=== PATIENT | female | born 1955 | race Caucasian/White ===

== ENCOUNTER 2024-11-11 15:24 | Emergency (ER) | payer MEDICARE ==
[~2024-11-11] VITALS: Ht 172.7 cm; Wt 86.4 kg
--- NOTE | 2024-11-11 15:37 | ELECTROCARDIOGRAPH REPORT ---
[facility] Test Date: 2024-11-11 Test Time: 15:30:18 Pat Name: STEVE JONES Department: EMERGENCY ROOM Room: Gender: F Van Loader: JOSE MARIA : 1955 Requested By: RASHIDA CHOWDARY Order Number: [id number] Reading MD: Dr. Melvin Mercado Measurements Intervals [place] Rate: 183 P: 0 NM: 0 QRS: 72 QRSD: 112 T: 68 QT: 281 QTc: 491 Interpretive Statements Supraventricular tachycardia Incomplete right bundle branch block ST depression, probably rate related Baseline wander in lead(s) V1 Electronically Signed On 11-20-2024 21:52:[address] Melvin Mercado Please click the below link to view image of tracing.
[2024-11-11 15:47] LABS: MEAN PLATELET VOLUME 7.6 FL (7.4-10.4); RED CELL DISTRIBUTION WIDTH 13.6 % (11.5-14.5)
[2024-11-11 15:55] LABS: APTT 27 SECONDS (22-32); INR 1.0 INR
--- NOTE | 2024-11-11 15:55 | Physician Documentation ---
History of Present Illness ~ Chief Complaint: Rapid Heartbeat Stated Complaint: HIGH HEART RATE Time Seen by MD: 15:53 HPI 69-year-old female presenting with a rapid heartbeat that started a couple hours ago. Patient states that she was helping some friend move furniture when she started feeling this rapid heartbeat in her chest. She felt slightly dizzy and tried to sit down and take some deep breaths but it did not go away. Patient denies any chest pain, shortness of breath or any other associated symptoms. She reports that she has had episodes of SVT in the past that usually goes away on its own with some maneuvers would such as holding her breath and deep breathing. This time however it did not work. Medication Reconciliation Allergies: Uncoded Allergies: STIMULANT (Allergy, Unknown, HIGH HR, 11/11/24) Review of Systems All Other Systems at this time: Reviewed and Negative Physical Exam Vital Signs: Temperature: 98.9, Source: Temporal, Heart Rate: 175, Respiratory Rate: 20, BP: 116/80, Pulse Oximetry: 100, Weight: 86.360 Oxygen Flow Rate: 0 Physical Exam I have reviewed the triage vitals. CONST: Well developed and well nourished. In no acute distress HENT: Head Atraumatic EYES: Pupils are equal, round and reactive to light. Normal conjunctiva NECK: Normal range of motion. Supple. CARDIO: Tachycardic No murmurs, rubs, or gallops. S1, S2. PULM/CHEST: No respiratory distress. Lungs clear to auscultation. No wheeze ABD: Soft and nontender. Nondistended. Bowel sounds normal. No guarding. : Exam deferred MSK: No edema. No deformity. NEURO: Alert and oriented to person, place and time. Moving all extremities SKIN: Warm and dry. PSYCH: Normal mood and affect. Good eye contact. Progress Results/Orders Results/Orders Orders - SIMBA CHOWDARY MD Chest,Single View (11/11/24 16:09) Monitor (11/11/24 15:36) Saline Lock (11/11/24 15:36) Oxygen (11/11/24 15:36) Completed Orders - SIMBA CHOWDARY MD Chest,Single View (11/11/24 16:09) Cbc/Diff (11/11/24 15:36) PBNP (11/11/24 15:36) Electrocardiogram (11/11/24 15:36) Hs Troponin I W Calculations (11/11/24 15:36) CMP (11/11/24 15:36) PTT (11/11/24 15:39) Pt Inr (11/11/24 15:39) Normal Saline 1000ml (0.9% Sodium Chlori (11/11/24 15:55) MG (11/11/24 15:30) Electrocardiogram (11/11/24 16:00) Vital Signs 11/11/24 11/11/24 11/11/24 11/11/24 15:37 16:05 16:14 16:28 Temp 98.9 98.9 98.9 Pulse 175 85 82 Resp 20 13 13 B/P (MAP) 116/80 116/59 (78) 112/65 (81) Pulse Ox 100 97 97 O2 Flow Rate 0 0 0 11/11/24 18:15 Pulse 70 Resp 12 B/P (MAP) 125/63 Pulse Ox 98 Laboratory Tests Test 11/11/24 15:30 White Blood Count 6.2 Red Blood Count 4.76 Hemoglobin 14.2 Hematocrit 42.6 Mean Corpuscular Volume 89.5 Mean Corpuscular Hemoglobin 29.8 Mean Corpuscular Hemoglobin Concent 33.3 Red Cell Distribution Width 13.6 Platelet Count 227 Mean Platelet Volume 7.6 Neutrophils (%) (Auto) 62.5 Lymphocytes (%) (Auto) 27.9 Monocytes (%) (Auto) 7.7 Eosinophils (%) (Auto) 1.3 Basophils (%) (Auto) 0.6 Neutrophils # (Auto) 3.9 Lymphocytes # (Auto) 1.7 Monocytes # (Auto) 0.5 Eosinophils # (Auto) 0.1 Basophils # (Auto) 0.0 CBC Comment Prothrombin Time 10.6 INR International Normalized Ratio 1.0 Activated Partial Thromboplast Time 27 Coagulation Comments Sodium Level 141 Potassium Level 3.8 Chloride Level 105 Carbon Dioxide Level 26.4 Anion Gap 10 Blood Urea Nitrogen 17 Creatinine 0.88 Estimated GFR/1.73 m2 63 BUN/Creatinine Ratio 19.3 Glucose Level 110 H Calcium Level 9.0 Magnesium Level 2.0 Total Bilirubin 0.7 Aspartate Amino Transf (AST/SGOT) 22 Alanine Aminotransferase (ALT/SGPT) 15 Alkaline Phosphatase 48 Troponin I High Sensitivity 9 Pro-B-Type Natriuretic Peptide 263 H Total Protein 7.6 Albumin 4.0 Globulin 3.6 Albumin/Globulin Ratio 1.1 Chemistry Comments EKG/XRAY/CT/US/VASC/MRI EKG : Additional Comment Initial EKG at 3:30 p.m. interpreted by ED MD indicating supraventricular tachycardia with a rate of 183 beats per minute no ST elevations, normal axis Repeat EKG after cardioversion indicating normal sinus rhythm with a rate of 85 beats per minute, no ischemia, normal axis Medical Decision Making Additional Information 69 yo F presenting with SVT that resolved after 6 mg IV push adenosine. Repeat EKG showed NSR. Patient monitored for 2 hrs w/ no recurrences. Labs normal. Will d/c home with cardiology and PCP f/u. Return to ED with worsening symptoms. Departure Disposition: HOME / SELF CARE / HOMELESS Impression: Primary Impression: Supraventricular tachycardia Condition: Improved Discharge Instructions: Supraventricular Tachycardia, Adult Additional Instructions: Please monitor her symptoms for any recurrence. Follow up with Cardiology in the next 1-2 weeks. Please return to the ED immediately with any recurring and worsening symptoms. Referrals: NO PRIMARY CARE PROVIDER (PCP) Critical Care Note Total Time (mins): 25 Critical Care Note The very real possibility of a deterioration of this patient's condition required the highest level of my preparedness for sudden, emergent intervention. I provided critical care services, which included medication orders, frequent reevaluations of the patient's condition and response to treatment, ordering and reviewing test results, and discussing the case with various consultants. Excludes time spent performing separately billable procedures. The critical care time associated with the care of the patient was. Signature Scribe Signature: 1 Attestation: The note accurately reflects work and decisions made by me.Simba Rosenberg MD 11/15/24 16:17 SIMBA CHOWDARY MD Nov 11, 2024 15:54
[2024-11-11 15:58] LABS: CREATININE 0.88 MG/DL (0.40-0.90); TOTAL CARBON DIOXIDE 26.4 MMOL/L (24-32); eCRCL 59 ML/MIN; eGFR 63 ML/MIN
[2024-11-11 16:05] LABS: PRO BRAIN NATRIURETIC PEPTIDE 263 PG/ML (0-125)
[2024-11-11] MEDS: normal saline 1000ml 1,000 ML IV ONE (16:05)
--- NOTE | 2024-11-11 16:23 | RADIOLOGY REPORT ---
CHEST RADIOGRAPH Indication: CP Technique: Single frontal view of the chest was obtained COMPARISON: None FINDINGS: Lines and Tubes: None Lungs: Clear Pleura: No effusion. No pneumothorax. Cardiomediastinal contours: Unremarkable Bones: Unremarkable IMPRESSION: No acute disease.
[2024-11-11 16:28] VITALS: TEMP 98.9
--- NOTE | 2024-11-11 17:58 | ELECTROCARDIOGRAPH REPORT ---
[facility] Test Date: 2024-11-11 Test Time: 16:00:03 Pat Name: STEVE JONES Department: EMERGENCY ROOM [id number] Room: Gender: F Roping Tender: : 1955 Requested By: RASHIDA CHOWDARY Order Number: [id number] Reading MD: Dr. Melvin Mercado Measurements Intervals [place] Rate: 85 P: 49 MD: 184 QRS: 63 QRSD: 103 T: 56 QT: 391 QTc: 465 Interpretive Statements Sinus rhythm Probable left atrial enlargement Electronically Signed On 11-20-2024 21:52:[address] Melvin Mercado Please click the below link to view image of tracing.
[2024-11-11 18:15] VITALS: BP 125/63; PULSE 70; RESP 12; O2SAT 98
== END 2024-11-11 18:04 | disposition home or self-care (01) ==
LOC: ER 15:25
DX: I47.10 Supraventricular tachycardia, unspecified (principal)
CPT/HCPCS: 36415; 71045; 80053; 83735; 83880; 84484; 85025; 85610; 85730; 93005; 96360; 99285; J7030